=== PATIENT | female | born 1980 | race Caucasian/White ===

== ENCOUNTER 2018-05-05 14:19 | Inpatient (IN) ==
[2018-05-05] MEDS ORDERED: VASOPRESSIN IV.CONT PRN (16:08)
[2018-05-05] MEDS ORDERED: SODIUM CHLOR 0.9% IV.CONT PRN ×2 (16:08→16:18)
[2018-05-05] MEDS ORDERED: Dextrose 5% in Water Inj 1,000 ML IV.SIG SCH (16:15)
[2018-05-05] MEDS ORDERED: LEVOTHYROXINE IV.CONT PRN (16:18)
[2018-05-05 16:25] VITALS: O2SAT 100
[2018-05-05] MEDS ORDERED: Dextrose 50% in Water 50 ML Vial IV.PUSH SCH (16:30)
[2018-05-05] MEDS ORDERED: Naloxone Inj 2 MG/2 ML Vial IV.PUSH ONE (16:30)
[2018-05-05] MEDS ORDERED: DOPamine 800 MG/500 ML Premix 800 MG/500 ML PLAST..BAG IV.CONT PRN (16:31)
--- NOTE | 2018-05-05 16:38 | XR ---
EXAM DATE: 05/05/2018 4:36 PM EST AGE/SEX: 38 years / Female INDICATIONS: Post bronchoscopy and right sided central line placement. CLINICAL DATA: This is the patient's initial encounter. Patient reports that signs and symptoms have been present for 1 day and indicates a pain score of Nonresponsive. MEDICAL/SURGICAL HISTORY: Non-responsive. Non-responsive. COMPARISON: . FINDINGS: Endotracheal tube tip terminates 1 cm above the pancho just above the origin of the right mainstem br onchus. Enteric tube courses beneath the diaphragm. The lungs are clear. Right subclavian central karri ous catheter tip overlies expected location of the SVC. I do not see a pneumothorax. CONCLUSION: No obvious pneumothorax. Electronically signed by: Travis Collins MD 05/05/2018 4:37 PM EST
[2018-05-05] MEDS ORDERED: METHYLPREDNISOLONE SOD SUC IV.SIG ONE ×2 (17:00)
[2018-05-05] MEDS: Piperacil/Tazo 4.5 GM Premix 4.5 GM/100 ML BAG IV.SIG SCH (17:00)
[2018-05-05] MEDS ORDERED: WATER IV.SIG ONE ×2 (17:00)
[2018-05-05] MEDS ORDERED: DEXTROSE 5% IV.SIG ONE ×2 (17:00)
[2018-05-05 17:42] LABS: Baso # (Auto) 0.1 th/mm3 (0.0-0.2); Baso % (Auto) 0.4 % (0.0-2.0); Eos % (Auto) 0.4 % (0.0-4.0); Hemoglobin 11.5 gm/dL (11.6-15.3); Lymph # (Auto) 1.8 th/mm3 (1.0-4.8); Lymph % (Auto) 13.2 % (9.0-44.0); Mean Corpuscular HGB Conc 33.6 % (32.0-36.0); Mean Corpuscular Hemoglobin 34.7 pg (27.0-34.0); Mean Corpuscular Volume 103.3 fL (80.0-100.0); Mean Platelet Volume 8.6 fL (7.0-11.0); Mono # (Auto) 0.3 th/mm3 (0.0-0.9); Mono % (Auto) 2.5 % (0.0-8.0); Neut # (Auto) 11.1 th/mm3 (1.8-7.7); Neut % (Auto) 83.5 % (16.0-70.0); Platelet Count 98 th/mm3 (150-450); Red Cell Distribution Width 15.4 % (11.6-17.2); White Blood Count 13.3 th/mm3 (4.0-11.0)
[2018-05-05 18:07] LABS: ABG Base Excess -9.2 mmol/L (-2-2); ABG PCO2 33 mmHg (38-42); ABG PO2 433 mmHG (61-120)
[2018-05-05 18:10] LABS: Activated Partial Thrombo Time 42.1 sec (23.4-31.7); INR 1.5 Ratio; Prothrombin Time 15.2 sec (9.8-11.6)
[2018-05-05 18:21] LABS: Lymphocytes 12 % (9-44); RBC Morphology Normal (Normal)
[2018-05-05 18:22] LABS: Platelet Morphology Normal (Normal)
[2018-05-05 18:33] LABS: Calcium 6.7 mg/dL (8.5-10.1); Carbon Dioxide 19.6 meq/L (21.0-32.0); Magnesium 1.4 mg/dL (1.5-2.5); Phosphorus 3.6 mg/dL (2.5-4.9); Potassium 3.5 meq/L (3.5-5.1); Troponin I 0.08 ng/mL (0.02-0.05)
[2018-05-05 18:47] LABS: Albumin 2.2 g/dL (3.4-5.0); Calcium-Albumin Corrected 8.1 mg/dL (8.5-10.1)
[2018-05-05 18:48] LABS: CKMB Percent 0.2 % (0.0-4.0); Creatine Kinase MB 11.2 ng/mL (0.5-3.6)
[2018-05-05] MEDS ORDERED: Vancomycin Inj 1,000 MG in Sodium Chlor 0.9% Inj 250 ML IV.SIG ONE (19:00)
[2018-05-05 19:35] LABS: Amorphous Sediment,Urine Few /hpf; Bacteria,Urine Few /hpf; Bilirubin,Urine Negative (Negative); Clarity,Urine Cloudy (Clear); Color,Urine Amber (Yellw/Straw); Glucose,Urine (UA) 150 mg/dL (Negative); Hyaline Casts,Urine 35 /lpf (0-3); Leukocyte Esterase,Urine Moderate (Negative); Mucus,Urine Few /lpf (Occasional); Nitrite,Urine Negative (Negative); Specific Gravity,Urine 1.016 (1.002-1.035); Squamous Epithelial Cell,Urine 13 /hpf (0-5)
[2018-05-05 20:24] LABS: Hemoglobin A1c 5.1 % (4.3-6.0)
[2018-05-05 21:19] LABS: Hepatitits B Surface Antigen Nonreactive (Nonreactive)
[2018-05-05 21:32] LABS: Albumin 2.2 g/dL (3.4-5.0)
[2018-05-05 21:41] LABS: Total Protein 5.6 g/dL (6.4-8.2)
[2018-05-05 21:42] LABS: Hepatitis A IgM Antibody Nonreactive (Nonreactive)
--- NOTE | 2018-05-05 21:53 | ECHRPT ---
Indication: POSS ENDOCARDITIS, POSS ORGAN DONOR CONCLUSIONS Normal left ventricular size. Normal wall motion.Wall thickness is normal. The left ventricular systolic function is normal with an estimated ejection fraction of 70-75%. There is trace tricuspid valve regurgitation. BP: / HR: Rhythm: Sinus MEASUREMENTS (Male / Female) Normal Values Technical Quality:Fair 2D ECHO LV Diastolic Diameter PLAX 4.0 cm 4.2 - 5.9 / 3.9 - 5.3 cm LV Systolic Diameter PLAX 2.5 cm IVS Diastolic Thickness 1.0 cm 0.6 - 1.0 / 0.6 - 0.9 cm LVPW Diastolic Thickness 1.0 cm 0.6 - 1.0 / 0.6 - 0.9 cm LV Relative Wall Thickness 0.5 RV Internal Dim ED PLAX 2.3 cm LVOT Diameter 1.6 cm Aortic Root Diameter 2.8 cm LA Systolic Diameter LX 2.1 cm 3.0 - 4.0 / 2.7 - 3.8 cm M-MODE AV Cusp Separation MM 1.5 cm DOPPLER AV Peak Velocity 136.0 cm/s AV Peak Gradient 7.4 mmHg AV Mean Gradient 4.0 mmHg AV Velocity Time Integral 21.2 cm LVOT Peak Velocity 84.2 cm/s LVOT Peak Gradient 2.8 mmHg LVOT Velocity Time Integral 14.8 cm AV Area Cont Eq vti 1.4 cm AV Area Cont Eq pk 1.2 cm Mitral E Point Velocity 65.6 cm/s Mitral A Point Velocity 75.0 cm/s Mitral E to A Ratio 0.9 LV E' Lateral Velocity 10.6 cm/s Mitral E to LV E' Lateral Ratio 6.2 LV E' Septal Velocity 6.0 cm/s Mitral E to LV E' Septal Ratio 10.9 PV Peak Velocity 82.7 cm/s PV Peak Gradient 2.7 mmHg FINDINGS LEFT VENTRICLE Normal left ventricular size. Normal wall motion.Wall thickness is normal. The left ventricular systolic function is normal with an estimated ejection fraction of 70-75%. RIGHT VENTRICLE Normal right ventricular size and systolic function. LEFT ATRIUM The left atrial size is normal. RIGHT ATRIUM The right atrial size is normal. ATRIAL SEPTUM No atrial level shunt is demonstrated by color flow Doppler interrogation. AORTA The aortic root and proximal ascending aorta are normal in size on limited imaging. MITRAL VALVE Structurally normal mitral valve. No mitral valve stenosis or regurgitation. AORTIC VALVE Trileaflet aortic valve. No aortic valve stenosis or regurgitation. TRICUSPID VALVE There is trace tricuspid valve regurgitation. PULMONARY VALVE No pulmonary valve regurgitation or stenosis. VESSELS The inferior vena cava is normal in size. PERICARDIUM No pericardial effusion. Timothy Hawk MD (Electronically Signed) Final Date:05 May 2018 21:52
[2018-05-05] MEDS ORDERED: Potassium Chloride Inj 20 MEQ in Sodium Chloride 0.45 % Inj 1,000 ML IV.CONT SCH (22:00)
[2018-05-05] MEDS: KCL 20 mEq/NACL 0.45% Inj 1,000 ML IV.SIG SCH (22:39)
[2018-05-05] MEDS ORDERED: Labetalol HCl Inj 20 MG/4 ML Vial IV.PUSH PRN (22:52)
[2018-05-05] MEDS ORDERED: Potassium Phosphate Inj 30 MMOL in Sodium Chlor 0.9% Inj 250 ML IV.SIG PRN (22:55)
[2018-05-05] MEDS ORDERED: Potassium Chlor 40 mEq Premix 40 MEQ/100 ML PIGGYBACK IV.SIG PRN ×2 (22:55)
[2018-05-05] MEDS ORDERED: Potassium Phosphate 500 MG Soluble Tablet PO PRN ×2 (22:55)
[2018-05-05] MEDS ORDERED: Potassium Chlor 20 mEq Premix 20 MEQ/100 ML PIGGYBACK IV.SIG PRN ×2 (22:55)
[2018-05-05] MEDS ORDERED: Potassium Chloride 25 MEQ Effervescent Tablet PO PRN (22:55)
[2018-05-05] MEDS ORDERED: Magnesium Oxide 400 MG Tablet PO PRN (22:55)
[2018-05-05] MEDS ORDERED: Sodium Phosphate Inj 30 MMOL in Sodium Chlor 0.9% Inj 250 ML IV.SIG PRN (22:55)
[2018-05-05] MEDS ORDERED: Magnesium Sulfate Inj 4 GM in Sodium Chlor 0.9% Inj 92 ML IV.SIG PRN (22:55)
[2018-05-05] MEDS ORDERED: Magnesium Sulfate Inj 2 GM in Sodium Chlor 0.9% Inj 96 ML IV.SIG PRN (22:55)
[2018-05-05] MEDS: hydrALAZINE HCl Inj 20 MG/ML Vial IV.PUSH PRN (23:00)
[2018-05-06] MEDS: Piperacil/Tazo 4.5 GM Premix 4.5 GM/100 ML BAG IV.SIG SCH ×3 (01:02→17:57)
[2018-05-06 01:07] LABS: ABG Base Excess -7.2 mmol/L (-2-2); ABG PCO2 27 mmHg (38-42); ABG PO2 403 mmHG (61-120)
[2018-05-06 01:34] LABS: Baso % (Auto) 0.2 % (0.0-2.0); Eos % (Auto) 0.4 % (0.0-4.0); Hematocrit 34.2 % (35.0-46.0); Lymph # (Auto) 0.7 th/mm3 (1.0-4.8); Lymph % (Auto) 6.1 % (9.0-44.0); Mean Corpuscular HGB Conc 34.9 % (32.0-36.0); Mean Corpuscular Volume 100.1 fL (80.0-100.0); Mono # (Auto) 0.2 th/mm3 (0.0-0.9); Mono % (Auto) 1.3 % (0.0-8.0); Neut # (Auto) 10.9 th/mm3 (1.8-7.7); Platelet Count 83 th/mm3 (150-450); Red Blood Count 3.42 mil/mm3 (4.00-5.30); White Blood Count 11.8 th/mm3 (4.0-11.0)
[2018-05-06 02:06] LABS: Albumin 2.4 g/dL (3.4-5.0); Calcium 6.8 mg/dL (8.5-10.1); Carbon Dioxide 19.3 meq/L (21.0-32.0); Magnesium 1.3 mg/dL (1.5-2.5); Phosphorus 4.4 mg/dL (2.5-4.9); Potassium 3.7 meq/L (3.5-5.1); Total Protein 6.2 g/dL (6.4-8.2)
[2018-05-06] MEDS: METHYLPREDNISOLONE SOD SUC IV.SIG SCH ×6 (02:07→18:11)
[2018-05-06] MEDS: hydrALAZINE HCl Inj 20 MG/ML Vial IV.PUSH PRN (02:07)
[2018-05-06] MEDS: WATER IV.SIG SCH ×6 (02:07→18:11)
[2018-05-06] MEDS: DEXTROSE 5% IV.SIG SCH ×6 (02:07→18:11)
[2018-05-06] MEDS ORDERED: Albumin Human 25% Inj 100 ML IV.SIG ONE ×2 (03:00→19:45)
[2018-05-06 03:13] LABS: Lymphocytes 2 % (9-44); Metamyelocytes 2 % (0-1); Monocytes 1 % (0-8); Platelet Morphology Normal (Normal)
[2018-05-06 06:24] LABS: ABG Base Excess -9.1 mmol/L (-2-2); ABG PCO2 33 mmHg (38-42); ABG PO2 390 mmHG (61-120)
--- NOTE | 2018-05-06 06:43 | XR ---
EXAM DATE: 05/06/2018 6:38 AM EST AGE/SEX: 38 years / Female INDICATIONS: [facility] evaluate lungs for donation. CLINICAL DATA: This is the patient's initial encounter. Patient reports that signs and symptoms have been present for 1 day and indicates a pain score of 0/10. MEDICAL/SURGICAL HISTORY: None. None. COMPARISON: C, CHEST 1V SINGLE AP, 05/05/2018. . FINDINGS: Single AP view the chest. Endotracheal tube, nasogastric tube, right subclavian central venous cathet er remain in place. Mild patchy bilateral lower lung zone opacity increased from the prior study. No evidence of pleural effusion or pneumothorax. Cardiomediastinal silhouette unchanged. CONCLUSION: Mild bilateral lower lung zone opacity. Electronically signed by: Harpreet Abdi MD 05/06/2018 6:42 AM EST
[2018-05-06 07:11] LABS: INR 1.4 Ratio; Prothrombin Time 14.2 sec (9.8-11.6)
[2018-05-06 07:21] LABS: Amorphous Sediment,Urine Rare /hpf; Bacteria,Urine Rare /hpf; Bilirubin,Urine Negative (Negative); Clarity,Urine Cloudy (Clear); Color,Urine Yellow (Yellw/Straw); Glucose,Urine (UA) 50 mg/dL (Negative); Leukocyte Esterase,Urine Trace (Negative); Mucus,Urine Few /lpf (Occasional); Nitrite,Urine Negative (Negative); Specific Gravity,Urine 1.006 (1.002-1.035); Squamous Epithelial Cell,Urine 3 /hpf (0-5)
[2018-05-06 08:49] LABS: INR 1.4 Ratio; Prothrombin Time 13.8 sec (9.8-11.6)
[2018-05-06 08:50] LABS: Baso % (Auto) 0.1 % (0.0-2.0); Eos % (Auto) 0.1 % (0.0-4.0); Hematocrit 30.9 % (35.0-46.0); Hemoglobin 10.7 gm/dL (11.6-15.3); Lymph # (Auto) 0.9 th/mm3 (1.0-4.8); Mean Corpuscular HGB Conc 34.6 % (32.0-36.0); Mean Corpuscular Hemoglobin 35.3 pg (27.0-34.0); Mean Platelet Volume 8.9 fL (7.0-11.0); Mono # (Auto) 0.2 th/mm3 (0.0-0.9); Mono % (Auto) 1.7 % (0.0-8.0); Neut # (Auto) 11.5 th/mm3 (1.8-7.7); Neut % (Auto) 91.1 % (16.0-70.0); Platelet Count 81 th/mm3 (150-450); Red Blood Count 3.03 mil/mm3 (4.00-5.30); Red Cell Distribution Width 15.3 % (11.6-17.2); White Blood Count 12.6 th/mm3 (4.0-11.0)
[2018-05-06 09:18] LABS: Albumin 2.7 g/dL (3.4-5.0); Calcium 7.3 mg/dL (8.5-10.1); Carbon Dioxide 16.2 meq/L (21.0-32.0); Magnesium 1.9 mg/dL (1.5-2.5); Potassium 3.4 meq/L (3.5-5.1)
[2018-05-06 09:21] LABS: Lymphocytes 4 % (9-44); Monocytes 1 % (0-8)
[2018-05-06 09:22] LABS: Dohle Bodies Present; Platelet Morphology Normal (Normal); Total Protein 6.1 g/dL (6.4-8.2)
[2018-05-06] MEDS ORDERED: Potassium Chlor 20 mEq Premix 20 MEQ/100 ML PIGGYBACK IV.SIG ONE ×2 (10:00→19:45)
--- NOTE | 2018-05-06 10:25 | ECG ---
Date Performed: 05/05/2018 Time Performed: 22:08:10 PTAGE: 38 years EKG: Sinus rhythm . Extensive T wave changes are nonspecific Borderline ECG NO PREVIOUS TRACING DOCTOR: Rah Armstrong Interpretating Date/Time 05/06/2018 10:24:22
[2018-05-06] MEDS ORDERED: DOPamine 800 MG/500 ML Premix 800 MG/500 ML PLAST..BAG IV.CONT SCH (10:30)
[2018-05-06 10:37] LABS: ABG Base Excess -7.7 mmol/L (-2-2); ABG PCO2 33 mmHg (38-42); ABG PO2 418 mmHG (61-120)
[2018-05-06] MEDS ORDERED: Albumin Human 25% Inj 50 ML IV.SIG ONE (11:00)
[2018-05-06] MEDS: KCL 20 mEq/NACL 0.45% Inj 1,000 ML IV.SIG SCH (11:03)
[2018-05-06 12:56] LABS: Baso % (Auto) 0.1 % (0.0-2.0); Eos % (Auto) 0.3 % (0.0-4.0); Hematocrit 29.2 % (35.0-46.0); Hemoglobin 10.2 gm/dL (11.6-15.3); Lymph % (Auto) 6.7 % (9.0-44.0); Mean Corpuscular HGB Conc 34.9 % (32.0-36.0); Mean Platelet Volume 8.5 fL (7.0-11.0); Mono # (Auto) 0.4 th/mm3 (0.0-0.9); Mono % (Auto) 2.6 % (0.0-8.0); Neut # (Auto) 13.7 th/mm3 (1.8-7.7); Neut % (Auto) 90.3 % (16.0-70.0); Platelet Count 77 th/mm3 (150-450); Red Blood Count 2.84 mil/mm3 (4.00-5.30); Red Cell Distribution Width 15.1 % (11.6-17.2); White Blood Count 15.2 th/mm3 (4.0-11.0)
[2018-05-06] MEDS ORDERED: Heparin 10,000 UNITS/10 ML Vial (for IV use) IV.SIG ONE (13:00)
[2018-05-06 13:05] LABS: Activated Partial Thrombo Time 42.6 sec (23.4-31.7); INR 1.2 Ratio; Prothrombin Time 12.6 sec (9.8-11.6)
[2018-05-06 13:21] LABS: Albumin 2.9 g/dL (3.4-5.0); Calcium 7.4 mg/dL (8.5-10.1); Carbon Dioxide 20.7 meq/L (21.0-32.0); Magnesium 1.9 mg/dL (1.5-2.5); Phosphorus 3.8 mg/dL (2.5-4.9); Potassium 3.8 meq/L (3.5-5.1); Total Protein 6.4 g/dL (6.4-8.2)
--- NOTE | 2018-05-06 13:29 | XR ---
EXAM DATE: 05/06/2018 1:25 PM EST AGE/SEX: 38 years / Female INDICATIONS: Evaluate chest for organ donation CLINICAL DATA: This is the patient's initial encounter. Patient reports that signs and symptoms have been present for 1 day and indicates a pain score of Nonresponsive. MEDICAL/SURGICAL HISTORY: Non-responsive. Non-responsive. COMPARISON: [facility] [place], CHEST 1V SINGLE AP, 05/06/2018. . FINDINGS: A single AP supine portable view of the chest was obtained and again demonstrates the endotracheal tu be in place with the tip approximately 2 cm above the pancho. A nasogastric tube is seen coursing thr ough the esophagus into the stomach. The left subclavian central venous line remains in place. The pa tient is mildly rotated to the left. There is hazy opacity now noted in the right perihilar region. T he left lung appears clear. There is no effusion. The heart size remains within normal limits. The [place]ley [place] thorax is intact. CONCLUSION: 1. Mildly rotated study with hazy opacity now noted in the right perihilar region. 2. The patient remains intubated. Electronically signed by: Ant Estrella MD 05/06/2018 1:28 PM EST
[2018-05-06 13:31] LABS: Dohle Bodies Present; Lymphocytes 1 % (9-44); Monocytes 3 % (0-8); Platelet Morphology Normal (Normal)
--- NOTE | 2018-05-06 15:55 | CATHPROC ---
[employer] HIS Report Study Information Study Number Admission Scheduled Start Study Start [id number] May 05 2018 2:19PM 05/06/2018 May 06 2018 2:37PM [place] [facility] Cardiac Catheterization Admit Source Facility Department Emergency department [facility] Physician and Clinical Staff Initial Junior Hoyos Investment Associate Dedra Small RN Recorder Sharonda Calle,ASSISTANT CENTER DIRECTOR TECH2 Scrub Jessica Guzman RCIS TECH2 Procedures Performed Procedure Location (Site) Vessel Name Coronary Angiograms RCA Right Coronary Wire insertion Fem Art (right) Femoral Art Equipment Time Director General Description Size Mfg Part Number Used/Scraped [id number] 14:45 BEDOYA KELLY SWAN ANSLEY CATHETER FR 7 Used *[id number] TRANSDUCER, TRUWAVE [id number] 14:45 BEDOYA KELLY * Used W/STOCKCOCK *[id number] TRANSDUCER, TRUWAVE [id number] 14:45 BEDOYA KELLY * Used W/STOCKCOCK *[id number] INTRODUCER SET, 14:45 [employer] FR 5 [id number] *[id number] Used MICROPUNCTURE STIFF [id number] *[id number] *[id number] 14:45 [employer] BLANKET,WARM AIR CCL * Used *[id number] 14:45 [employer] Business [employer] PACK, CCL CUSTOM * Used *[id number] 15:06 [employer] MEDICAL SHEATH, FR5.5 PRELUDE 11CM FR 5 [id number] Used [id number] 14:45 [employer] MEDICAL WIRE, 3MMJ .035 180CM 180CM Used *[id number] 14:45 NAMIC MANIFOLD, 2 PORT * Used *[id number] 14:45 NAMIC MANIFOLD, 4 PORT * Used *[id number] 14:45 [employer] OMNIPAQUE, 350 MG, 150ML 150ML [id number] Used [id number] 14:45 TERUMO MEDICAL SHEATH, FR5 TERUMO (10CM) FR 5 Used *[id number] 14:45 TERUMO MEDICAL SHEATH, FR7 TERUMO (10CM) FR 7 Used *[id number] History: Allergies Allergy Reaction No Known Allergies Labs Hgb (g/dl) Hct (%) WBC (l/cumm) Platelets (thousands) 11.60-17.00 35.00-51.00 4.00-11.00 150.00-450.00 10.2 29.2 15.2 77 Glucose (mg/dl) BUN (mg/dl) Creatinine (mg/dl) BUN:Creatinine (1:x) 74.00-106.00 7.00-18.00 0.50-1.30 10.00-20.00 144 43 4.8 9 Na (meq/l) K (meq/l) 136.00-145.00 3.50-5.10 142 3.8 CPK-MB (ng/ML) 0.50-3.60 Not Drawn Medication Medication Total Dose (Bolus/Oral) Medication Total Dosage/Unit 1% XYLOCAINE 20 mL Medications (Bolus/Oral) Medication Time Given Dosage/Unit Administered By Reason 1% XYLOCAINE 05/06/2018 3:02:00 PM 20 mL Dedra Small 20 mL 1% XYLOCAINE given in lab by Dedra Small, YOVANI via Subcutaneous. Medication (Drip) Medication Time Given Dosage/Unit Concentration/Unit Diluent (ml) Solution IV Solutions 05/06/2018 2:38:48 PM 0 mL (IV) 500 NaCl .9 IV Solutions given in lab by Dedra Small, YOVANI in Right shoulder via Peripheral IV. Pump/Drip Flow = 20 ml/hr using NaCl .9. Subclavian central line. Initial Case Assessment Cardiovascular HR Rhythm Chest Pain 102 Sinus 0 Edema Present Skin color Skin None Normal Warm Dry Circulatory - Right Pulses Dorsalis Pedis Femoral 2 2 Scale (0,1,2,3,4,d) Circulatory - Left Pulses Dorsalis Pedis Femoral 2 2 Scale (0,1,2,3,4,d) Neurological State Oriented to time-place- Alert Moves all extremities person Respiration - General Respiration Rate SpO2 (%) (B/min) 15 100 Respiration - Ventilator Type Intubation Type ET(oral) Respiration - Ventilator Settings TV (ml) IMV (L) FIO2 (%) PEEP (cm/H2O) 550 16 100 10 Final Case Assessment Cardiovascular HR Rhythm NIBP Chest Pain 98 Sinus 122/65 0 Edema Present Skin color Skin None Normal Warm Dry Circulatory - Right Pulses Dorsalis Pedis Femoral 2 2 Scale (0,1,2,3,4,d) Circulatory - Left Pulses Dorsalis Pedis Femoral 2 2 Scale (0,1,2,3,4,d) Neurological State Oriented to time-place- Alert Moves all extremities person Respiration - General Respiration Rate SpO2 (%) (B/min) 16 100 Respiration - Ventilator Type Intubation Type ET(oral) Chronological Log Time Study Chronological Log 14:33:22 Patient arrived via Bed. 14:37:31 Patient Name, D.O.B, / Armband Verified By R.N. 14:37:32 Consent signed by the physician and the patient and verified by the [facility] staff. 14:37:32 Pre-op and post- op instructions given; patient acknowledges understanding of instructions. 14:37:33 Verbal Stimulation=2 Physical Stimulation=2 Airway=2 Respiration=2 TOTAL=8. (0=absent, 1=li mited, 2=present) 14:38:01 Patient has been NPO for More than 6Hrs. 14:38:02 Skin Breakdown- none per patient. 14:38:41 Patient Warmer Placed on the Table. 14:38:43 Nelly Prominences Protected 14:38:45 A # ~SIZE~ IV was noted in the Subclav. Vein (Rt). Grade = ~GRADE~ 7 Fr. triple lumen IV Solutions given in lab by Dedra Small, YOVANI in Right shoulder via Peripheral IV. Pump/Drip Flow = 20 ml/hr using 14:38:48 NaCl .9. Subclavian central line. 14:43:19 History and physical on the chart or being dictated. Assessment: Initial Case, QI=587 BPM, Rhythm=Sinus, Chest Pain=0, Edema=None, Color=Normal, Ski n = Warm, Dry Right Pulses: Anderson Ped=2, Femoral=2 14:43:21 Left Pulses: Anderson Ped=2, Femoral=2 Neurological: State=Alert, Ox3, CORRAL Respiration: Resp=15 B/min, RdG4=553 %, Type=ET(Oral), AC=153 mL, IMV=16 L, QLW7=355 %, PEEP=10 cm/H2O Vitals capture started with the following parameters, Patient=Adult, Interval=5 min, Initial Pr byouiw=876 mmHg, 14:43:44 Deflation Rate=5 mmHg, Cuff placed on Right Arm 14:43:59 Reference ECG taken 14:44:21 NR=169 bpm, TKHQ=534/70 mmhg, XoY7=144.0 %, Resp=15 B/min, Pain=0, Yamila=10, Zacarias=2 14:49:22 HI=602 bpm, DWUL=934/73 mmhg, ZfS7=219.0 %, Resp=16 B/min, Pain=0, Yamila=10, Zacarias=2 14:53:50 Bilateral groins prepped with 2% chlorhexidine, and draped after a 3 minute waiting time. 14:54:23 QD=736 bpm, BRCX=613/72 mmhg, QlC7=547.0 %, Resp=13 B/min, Pain=0, Yamila=10, Zacarias=2 14:56:37 Pressure channel 1 zeroed. 14:59:24 CC=162 bpm, WKWC=600/71 mmhg, YuW2=463.0 %, Resp=15 B/min, Pain=0, Yamila=10, Zacarias=2 Time Out. Correct patient, correct procedure, correct physician, labs, allergies, and equipment verified with odd job laborer 15:01:51 team present. Fire risk assesment completed (see hard stop sheet for coding). Time Out Conc urred by MD and individual staff in procedure. 15:01:54 Case Start 15:02:00 20 mL 1% XYLOCAINE given in lab by Dedra Small RN via Subcutaneous. 15:03:55 Access site was Right Femoral Artery. A INTRODUCER SET, MICROPUNCTURE STIFF FR 5 was advanced into the Fem Art (right) using the Sharon fied Seldinger 15:04:15 technique. 15:04:23 OM=721 bpm, MGTF=741/73 mmhg, PmY3=918.0 %, Resp=15 B/min, Pain=0, Yamila=10, Zacarias=2 A SHEATH, FR5 TERUMO (10CM) FR 5 was exchanged in the Fem Art (right). This was necessary in or cristina to achieve 15:04:23 vascular hemostasis. 15:06:40 Access site was Right Femoral Vein. 15:06:58 A SHEATH, FR7 TERUMO (10CM) FR 7 was advanced into the Fem Art (right) using the Modified S eldinger technique. 15:07:44 A SWAN ANSLEY CATHETER FR 7 was inserted via Fem Vein (right) Recorded Pressure: PCW, WD=116, Condition=Condition 1 15:09:43 (Pulmonary Capillary Wedge) PCW 15:10:01 VU=040 bpm, WDWH=157/64 mmhg, UnT3=521.0 %, Resp=15 B/min, Pain=0, Yamila=10, Zacarias=2 Recorded Pressure: MPA, SX=398, Condition=Condition 1 15:10:59 (Main Pulmonary Artery) MPA 18/05/17 Recorded Pressure: RV, OA=634, Condition=Condition 1 15:12:06 (Right Ventricle) RV 29//6 Recorded Pressure: RA, IQ=758, Condition=Condition 1 15:12:22 (Right Atrium) RA 15:12:30 Sycamore Ansley Catheter Removed 15:12:58 Saturation: Site=Ao (Aorta) , O2=97.5 %, Hgb=10.2 gm/dl, Condition=Condition 1. Used in humza culation. 15:13:15 Saturation: Site=PA (Pulmonary Artery) , O2=87.9 %, Hgb=10.2 gm/dl, Condition=Condition 1. Used in calculation. A JR 4.0 INFINITI CATHETER FR 5 was advanced over a wire. OMNIPAQUE, 350 MG, 150ML 150ML was us ed for 15:13:39 injections. Recorded Pressure: LV, DR=407, Condition=Condition 1 15:13:46 (Left Ventricle) LV 104/3/13 Recorded Pressure: LV, Ao, JN=760, Condition=Condition 1 15:14:15 (Left Ventricle) LV 103/3/10, (Aorta) Ao 100/65/83 Recorded Pressure: Ao, BG=629, Condition=Condition 1 15:14:36 (Aorta) Ao 94/64/79 15:14:50 LS=993 bpm, AAAR=848/70 mmhg, VvG0=223.0 %, Resp=15 B/min, Pain=0, Yamila=10, Zacarias=2 15:15:20 The RCA was injected and visualized at various angles. OMNIPAQUE, 350 MG, 150ML 150ML used . After removing the current catheter a JL 4.0 INFINITI CATHETER FR 5 was advanced over a WIRE, 3 MMJ .035 180CM 15:15:53 180CM. 15:19:15 A WIRE, 3MMJ .035 180CM 180CM was inserted via Fem Art (right). 15:19:20 HR=98 bpm, MEST=464/61 mmhg, OuW9=234.0 %, Resp=16 B/min, Pain=0, Yamila=10, Zacarias=2 15:19:33 Catheter was removed 15:20:01 Case End (Physician broke scrub) 15:22:35 Catheter(s) removed without difficulty 15:22:37 Sheath removed; righr femoral artery , pressure applied to access site. 15:25:02 YA=748 bpm, NIBP=79/54 mmhg, IyE4=151.0 %, Resp=16 B/min, Pain=0, Yamila=10, Zacarias=2 15:29:47 HR=99 bpm, BUOU=776/67 mmhg, ZfR5=929.0 %, Resp=16 B/min, Pain=0, Yamila=10, Zacarias=2 15:34:23 OS=570 bpm, CBAG=060/67 mmhg, TpL6=607.0 %, Resp=9 B/min, Pain=0, Yamila=10, Zacarias=2 15:38:31 Sheath removed; right femoral vein pressure applied to access site. 15:39:26 XU=118 bpm, ZUUN=207/70 mmhg, LxP6=080.0 %, Resp=16 B/min, Pain=0, Yamila=10, Zacarias=2 15:44:25 HR=98 bpm, OZZZ=052/68 mmhg, IrJ1=050.0 %, Resp=16 B/min, Pain=0, Yamila=10, Zacarias=2 15:49:28 HR=98 bpm, DUXW=674/65 mmhg, EaK5=253.0 %, Resp=16 B/min, Pain=0, Yamila=10, Zacarias=2 15:53:14 Vitals capture stopped. 15:53:23 Sterile dressing applied to site 15:53:24 No case complications noted. 15:53:28 Cine recording checked. 15:53:30 Bedside Report will be given. 15:53:37 A Left and Right Heart Cath was performed. Assessment: Final Case, HR=98 BPM, Rhythm=Sinus, CXJR=323/65 mmhg, Chest Pain=0, Edema=None, Color=Normal, Skin = Warm, Dry Right Pulses: Anderson Ped=2, Femoral=2 15:53:43 Left Pulses: Anderson Ped=2, Femoral=2 Neurological: State=Alert, Ox3, CORRAL Respiration: Resp=16 B/min, LiZ8=093 %, Type=ET(Oral) 15:54:58 Patient moved to stretcher End Study - Contrast Media Used In Study Contrast Total Opened (mL) Total Used (mL) Total Wasted (mL) Omnipaque 350 20 20 0 End Study - Maximum Contrast Load Max Contrast Load (mL) 82.7 End Study - Radiation Exposure Fluoro Time (minutes) 3.1 End Study - Patient Disposition Complications Transferred To No Critical Care Bed
--- NOTE | 2018-05-06 16:37 | MA ---
cc: Junior Nuñez DO DATE: 05/06/2018 PROCEDURE: Left heart catheterization, right heart catheterization, coronary angiogram. PREPROCEDURE DIAGNOSIS: Brain , for possible heart transplant donor. POSTPROCEDURE DIAGNOSIS: Normal coronary arteries, normal right heart catheterization pressures. MEDICATIONS: None. CONTRAST USED: 20 mL FLUOROSCOPY: 3.1 minutes. MODERATE SEDATION: 0 minutes. FRAILTY SCORE 9. ESTIMATED BLOOD LOSS: 10 mL PROCEDURAL SUMMARY: The patient is a 38-year-old female who unfortunately is now deemed to be brain . She was evaluated by [facility] with an ejection fraction of 70% on her echocardiogram. Because of her history, they asked that she undergo heart catheterization to determine her candidacy to be a heart transplant donor. Consent was obtained through [facility]. She was brought to the lab and prepped in the usual sterile fashion. The right femoral artery was accessed using modified Seldinger technique and placement of a 5-[place] sheath. Right femoral vein was accessed using modified Seldinger technique and placement of a 7-[place] sheath. Both were easily aspirated and flushed. A Shasta-Irasema catheter was advanced to a wedge position and oxygenations as well as pressures were done on a standard pullback throughout the heart. Shasta-Irasema catheter was removed. A JR4 was advanced over a J-wire to the ascending aorta and across the aortic valve for measurement of left ventricular pressure. This was pulled back across the aortic valve, showing no significant gradient of aortic stenosis. JR4 was used for selective angiography of the right coronary artery system. This was exchanged out for a JL4, which was used for selective angiography of the left coronary artery system. The JL4 was removed over a J wire. Both sheaths were removed and pressure held for hemostasis. The patient left the cardiac cath lab technologist stable. FINDINGS: 1. Left main: Normal-sized vessel with no disease. It bifurcates into an LAD and circumflex. 2. LAD: Moderate to large size vessel with no disease throughout the proximal or midportion. Distally does not appear to have significant disease, but is overall tortuous with a tapering to the apex. It gives off 2 major diagonals which are overall large vessels with some tortuosity, but no disease. 3. Left circumflex: Large, probable codominant vessel with 2 obtuse marginals, as well as a distal posterolateral branch with overall no significant disease. 4. RCA: Moderate to large size vessel with no disease noted. Distally it supplies a PDA as well as a small posterolateral branch. Overall, no significant disease. HEMODYNAMICS: RA: 5 RV 29/5 RVEDP 6 PA 23/12, mean PA 17. Wedge 9. Cardiac output: 17. Cardiac index: 9.4 (most likely somewhat falsely elevated due to the patient being on 100% oxygen). Mixed venous: 87.9. Arterial oxygenation: 97.5. IMPRESSION: 1. Brain . 2. Heart transplant donor candidate. RECOMMENDATIONS: 1. The patient appears to have minimal coronary artery disease at the most with normal right heart catheterization pressures and ultimately shoulder be considered a heart transplant donor candidate. 2. Currently [facility] is working on further workup for other organs. Thank you for allowing me to see this patient. If there are any questions, please do not hesitate to call. DO VINNY Cisneros/nitish/lilly , 03:51 PM , 04:04 PM
[2018-05-06 16:49] LABS: ABG Base Excess -5.4 mmol/L (-2-2); ABG PCO2 32 mmHg (38-42); ABG PO2 375 mmHG (61-120)
[2018-05-06 17:50] LABS: Baso % (Auto) 0.1 % (0.0-2.0); Eos % (Auto) 0.3 % (0.0-4.0); Hematocrit 27.4 % (35.0-46.0); Hemoglobin 9.8 gm/dL (11.6-15.3); Lymph # (Auto) 0.8 th/mm3 (1.0-4.8); Lymph % (Auto) 5.6 % (9.0-44.0); Mean Corpuscular HGB Conc 35.7 % (32.0-36.0); Mean Corpuscular Hemoglobin 35.9 pg (27.0-34.0); Mean Corpuscular Volume 100.6 fL (80.0-100.0); Mean Platelet Volume 8.5 fL (7.0-11.0); Mono # (Auto) 0.3 th/mm3 (0.0-0.9); Mono % (Auto) 1.7 % (0.0-8.0); Neut # (Auto) 13.3 th/mm3 (1.8-7.7); Neut % (Auto) 92.3 % (16.0-70.0); Platelet Count 72 th/mm3 (150-450); Red Blood Count 2.72 mil/mm3 (4.00-5.30); White Blood Count 14.4 th/mm3 (4.0-11.0)
[2018-05-06 17:57] LABS: INR 1.2 Ratio
[2018-05-06 18:10] LABS: Albumin 2.8 g/dL (3.4-5.0); Magnesium 1.8 mg/dL (1.5-2.5); Phosphorus 4.6 mg/dL (2.5-4.9)
[2018-05-06 18:16] LABS: Platelet Morphology Normal (Normal); Total Protein 6.4 g/dL (6.4-8.2)
[2018-05-06] MEDS ORDERED: Heparin 10,000 UNITS/10 ML Vial (for IV use) IV.SIG SCH (19:00)
--- NOTE | 2018-05-06 19:19 | XR ---
EXAM DATE: 05/06/2018 7:11 PM EST AGE/SEX: 38 years / Female INDICATIONS: Organ donor. CLINICAL DATA: This is the patient's subsequent encounter. Patient reports that signs and symptoms h ave been present for 2 days and indicates a pain score of Nonresponsive. MEDICAL/SURGICAL HISTORY: Non-responsive. Non-responsive. COMPARISON: [facility], CHEST 1V SINGLE AP, 05/06/2018. . FINDINGS: A single AP view of the chest demonstrates relatively clear lungs. Heart normal in size. Endotracheal tube 2.5 cm above the pancho. Nasogastric tube with tip in stomach. Right subclavian central line wi th tip in the SVC. The cardiomediastinal contours are unremarkable. Osseous structures are intact. CONCLUSION: No acute cardiopulmonary disease Electronically signed by: Angel Cutler MD 05/06/2018 7:18 PM EST
[2018-05-06 19:34] LABS: Bilirubin,Urine Negative (Negative); Clarity,Urine Clear (Clear); Color,Urine Colorless (Yellw/Straw); Glucose,Urine (UA) Negative (Negative); Leukocyte Esterase,Urine Negative (Negative); Mucus,Urine Few /lpf (Occasional); Nitrite,Urine Negative (Negative); Specific Gravity,Urine 1.006 (1.002-1.035)
[2018-05-06 19:37] LABS: Eos % (Auto) 0.1 % (0.0-4.0); Hematocrit 26.7 % (35.0-46.0); Hemoglobin 9.4 gm/dL (11.6-15.3); Mean Corpuscular HGB Conc 35.2 % (32.0-36.0); Mean Corpuscular Hemoglobin 35.1 pg (27.0-34.0); Mean Corpuscular Volume 99.6 fL (80.0-100.0); Mean Platelet Volume 9.2 fL (7.0-11.0); Mono # (Auto) 0.4 th/mm3 (0.0-0.9); Mono % (Auto) 2.4 % (0.0-8.0); Neut # (Auto) 15.2 th/mm3 (1.8-7.7); Neut % (Auto) 91.5 % (16.0-70.0); Platelet Count 72 th/mm3 (150-450); Red Blood Count 2.68 mil/mm3 (4.00-5.30); White Blood Count 16.6 th/mm3 (4.0-11.0)
[2018-05-06 19:45] VITALS: RESP 16
[2018-05-06 19:51] LABS: INR 1.3 Ratio; Prothrombin Time 12.7 sec (9.8-11.6)
[2018-05-06 19:58] LABS: Anion Gap 12 meq/L (5-15)
[2018-05-06 19:59] LABS: Alanine Aminotransferase 1489 U/L (10-53); Albumin 2.8 g/dL (3.4-5.0); Alkaline Phosphatase 103 U/L (45-117); Aspartate Aminotransferase 508 U/L (15-37); Blood Urea Nitrogen 48 mg/dL (7-18); Calcium 7.6 mg/dL (8.5-10.1); Carbon Dioxide 21.8 meq/L (21.0-32.0); Chloride 108 meq/L (98-107); Glomerular Filtration Rate 9 mL/min (>89); Glucose,Random 256 mg/dL (74-106); Potassium 4.1 meq/L (3.5-5.1); Sodium 142 meq/L (136-145)
[2018-05-06 20:00] LABS: Activated Partial Thrombo Time 131.9 sec (23.4-31.7)
[2018-05-06] MEDS ORDERED: Albumin Human 25% Inj 100 ML IV.SIG SCH (20:00)
[2018-05-06 20:05] LABS: Platelet Morphology Normal (Normal); RBC Morphology Normal (Normal)
[2018-05-06 20:24] LABS: ABG Base Excess -7.9 mmol/L (-2-2); ABG PCO2 35 mmHg (38-42); ABG PO2 401 mmHG (61-120)
[2018-05-06] MEDS ORDERED: Sodium Chlor 0.9% Inj 250 ML IV.SIG ONE (20:30)
[2018-05-06] MEDS ORDERED: Phenylephrine Inj 40 MG in Dextrose 5% in Water Inj 496 ML IV.CONT PRN ×2 (21:00)
[2018-05-06 21:12] VITALS: BP 155/71; PULSE 113; TEMP 98.9
[2018-05-07] MEDS ORDERED: Iohexol 350 MG/ML 50 ML Vial (for Cath Lab) IVCONTRAST ONE (00:59)
--- NOTE | 2018-05-07 02:48 | MB ---
cc: Junior Nuñez DO DATE: 05/06/2018 REASON FOR CONSULTATION: Consideration of heart catheterization. HISTORY OF PRESENT ILLNESS: The patient is an unfortunate 38-year-old female who was found down by her roommate and unarousable. Upon arrival, she was found to be apneic with pinpoint pupils and given Narcan with no change. She was provided 2 rounds of CPR with epinephrine and had return of spontaneous circulation. CT scan of the brain showed severe anoxic brain damage changes. She was declared brain by 2 physicians. She was seen by [facility] for consideration of organ donation. She had an echo, which showed normal function and to rule out significant disease so that she could be a heart donor, they requested a heart catheterization. PAST MEDICAL HISTORY: 1. Bipolar disorder. 2. Known narcotic use. PAST SURGICAL HISTORY: No known surgeries. ALLERGIES: NO KNOWN DRUG ALLERGIES. MEDICATIONS: Unable to obtain. FAMILY HISTORY: Unknown. SOCIAL HISTORY: Known tobacco abuse. Known to use narcotics. REVIEW OF SYSTEMS: Unable to obtain due to the patient's current state. PHYSICAL EXAMINATION: VITAL SIGNS: Temperature 101.8, heart rate 124, blood pressure 108/76, respirations 18, pulse oximetry 99% on the ventilator. GENERAL: The patient is unresponsive, currently intubated. HEENT: Pupils are equal and round. NECK: Supple. No JVD at 45 degrees. No carotid bruits heard bilaterally. Carotid upstroke is brisk in nature. HEART: Regular rate and rhythm. Positive first and second heart sounds with no noted murmurs, gallops or rubs. LUNGS: Clear to auscultation bilaterally. No wheezes, rales or rhonchi. ABDOMEN: Soft, nontender, nondistended. No organomegaly noted. SKIN: Warm, dry and intact. OSTEOPATHIC: No kyphoscoliosis, lordosis or paraspinal tender points. EXTREMITIES: Show no clubbing, cyanosis or edema. SKIN: Warm, dry and intact. NEUROLOGIC: The patient is legally brain and unresponsive. LABORATORY DATA: Hemoglobin 9.4, hematocrit 26.7, platelets 72. Potassium 4.1, BUN 48, creatinine 5.33. IMPRESSION: 1. Narcotic overdose. 2. Brain . 3. Anemia. 4. Thrombocytopenia. 5. Acute kidney injury. 6. Shock liver. RECOMMENDATIONS: 1. Ms. Briseno is unfortunately brain due to a narcotic overdose. 2. She has been evaluated by [facility] and their recommendation is for a heart catheterization to determine if she is a heart donor candidate. 3. We will plan for a left and right heart catheterization to further evaluate her pulmonary pressures as well as her coronary anatomy to determine if she is a heart donor. 4. Consent was obtained through [facility] for the procedure. Thank you for allowing me to see Ms. Briseno. If there are any questions, please do not hesitate to call. Junior Nuñez, VGP/sv , 12:48 AM , 12:58 AM
== END 2018-05-07 01:00 | disposition expired ==
LOC: HIMC 14:19
DX: Z52.9 Donor of unspecified organ or tissue